=== PATIENT | female | born 2000 | race American Indian/Alaskan Native ===

== ENCOUNTER → 2023-06-01 12:24 | Outpatient (AMB) | payer OTHER, MEDICAID, SELFPAY ==
[2023-06-01 12:43] VITALS: BP 102/68; PULSE 93; RESP 12; TEMP 37.1; O2SAT 97; BMI 16.1
--- NOTE | 2023-06-01 12:43 | MHC.OFFWIV ---
Intake Vital Signs 06/01/23 12:43 Height 5 ft 4.5 in Weight 95 lb BMI 16.1 BP 102/68 Blood Pressure Location Rt brachial Position Sitting Respiration 12 Pulse 93 Pulse Source Pulse Oximeter Temp 98.7 F Temp Source Oral Pulse Oximetry (%) 97 Oxygen Delivery Method Room Air Intake Visit Reasons: Sore throat,cough,ear pain Intake Note: Patient reports a cough and sore throat x6 days. Patient reports today her left ear feels like it has a sharp pain. 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 EAR PAIN STARTED YESTERDAY, LEFT WORSE THAN RIGHT. DENIES RECENT TRAVEL, NO KNOWN SICK CONTACTS, FEVER, CHILLS. UTD ON COVID VACCINES NO FLU VACCINE TRIED OTC MEDICATION W/O RELIEF PFSH Patient Tobacco Use Status: Never used Tobacco Review of Systems Const All systems reviewed & are unremarkable except as noted in HPI and below Physical Exam Vital Signs: Last Vital Signs Temp 98.7 F 06/01/23 12:43 Pulse 93 06/01/23 12:43 Resp 12 06/01/23 12:43 BP 102/68 06/01/23 12:43 Pulse Ox 97 06/01/23 12:43 Oxygen Delivery Method Room Air 06/01/23 12:43 BMI result Body Mass Index 16.1 Const Other: AWAKE ALERT NAD MILDLY ILL APPEARING CONJUNCTIVA CLEAR BILAT TM INTACT, + EFFUSIONS BILAT, + ERYTHEMA DIFFUSE ON LEFT NARES PATENT, TURBINATED ERYTHEMATOUS, SINUSES NONTENDER PHARYNX PINK, INJECTED.NO EXUDATE RRR LS CTAB. DRY OCCASIONAL COUGH Results AMB Rapid Strep AMB Rapid Strep Negative Last Edit by Jeniffer Younger CMA on 06/01/23 13:00 Assessment & Plan Assessment & Plan (1) Otitis media of left ear: Code(s): H66.92 - Otitis media, unspecified, left ear Qualifiers: Otitis media type: suppurative Chronicity: acute Recurrence: non-recurrent Spontaneous tympanic membrane rupture: without spontaneous rupture Qualified Code(s): H66.002 - Acute suppurative otitis media without spontaneous rupture of ear drum, left ear Orders: Orders AMB Rapid Strep Screen Today Z13.9 - Encounter for screening, unspecified Medications: New amoxicillin-pot clavulanate 875-125 mg 1 tab PO BID 7 days 14 tabs 0RF Patient Instructions: TAKE AB DIRECTED W/ FOOD OK TO USE OTC MEDS/REMEDIES TO HELP W/ COMFORT IF NO IMPROVEMENT OR WORSENING OF SX, PLEASE RETURN TO OFFICE FOR FURTHER EVAL AND TX. Coding Level of Care Code Est Pt Level 3 (33007) Diagnoses Non-recurrent acute suppurative otitis media of left ear without spontaneous rupture of tympanic membrane H66.002 Otitis media type: suppurative Chronicity: acute Recurrence: non-recurrent Spontaneous tympanic membrane rupture: without spontaneous rupture
== END ==
PROVIDERS: Visit Provider Nurse Practitioner Family
DX: H66.002 Acute suppurative otitis media without spontaneous rupture of ear drum, left ear (principal); J02.9 Acute pharyngitis, unspecified
CPT/HCPCS: 87880; 99213